=== PATIENT | male | born 1990 | race Caucasian/White ===

== ENCOUNTER 2024-08-03 11:26 | Emergency (ER) | payer OTHER ==
[~2024-08-03] VITALS: Ht 162.6 cm; Wt 74.8 kg
[2024-08-03 11:34] VITALS: TEMP 98.2; O2SAT 99
[2024-08-03 11:58] VITALS: BP 119/70; PULSE 70; RESP 16
[2024-08-03] MEDS: OXYCODONE HCL/ACETAMINOPHEN 5/325MG TABLET PO STA (11:58)
[2024-08-03] MEDS ORDERED: CEL200 MT (12:59)
[2024-08-03] MEDS ORDERED: HYDR-4001 MT (12:59)
== END 2024-08-03 13:10 | disposition home or self-care (01) ==
LOC: ER 11:38
DX: S46.911A Strain of unspecified muscle, fascia and tendon at shoulder and upper arm level, right arm, initial encounter (principal); X50.0XXA Overexertion from strenuous movement or load, initial encounter; Y93.9 Activity, unspecified; Y92.89 Other specified places as the place of occurrence of the external cause; Y99.8 Other external cause status
CPT/HCPCS: 73030; 73060; 99284